=== PATIENT | male | born 2000 | race African-American/Black ===

== ENCOUNTER 2021-04-16 11:24 | Emergency (ER) | payer MEDICAID ==
[~2021-04-16] VITALS: Ht 180.3 cm; Wt 77.0 kg
[2021-04-16 11:28] VITALS: BP 129/73
[2021-04-16] MEDS ORDERED: LORAZEPAM 1MG TABLET PO ONE (11:30)
[2021-04-16] MEDS ORDERED: LORA-250 MT (14:22)
== END 2021-04-16 14:30 | disposition home or self-care (01) ==
LOC: ER 11:24
DX: F41.0 Panic disorder [episodic paroxysmal anxiety] (principal); J45.909 Unspecified asthma, uncomplicated
CPT/HCPCS: 93005; 99283

== ENCOUNTER 2021-04-25 19:14 | Emergency (ER) | payer MEDICAID ==
[~2021-04-25] VITALS: Ht 180.3 cm; Wt 73.0 kg
[~2021-04-25 19:14] MED LIST: LORA-250 MT
[2021-04-25 19:22] VITALS: BP 129/39
== END 2021-04-25 21:30 | disposition left against medical advice (07) ==
LOC: ER 19:14
DX: Z53.21 Procedure and treatment not carried out due to patient leaving prior to being seen by health care provider (principal)
CPT/HCPCS: 93005

== ENCOUNTER 2023-10-30 19:40 | Emergency (ER) | payer MEDICAID ==
[2023-10-30 20:12] VITALS: PULSE 62; RESP 16; O2SAT 99
== END 2023-10-30 21:00 | disposition left against medical advice (07) ==
LOC: ER 19:40
DX: R68.89 Other general symptoms and signs (principal); Z53.21 Procedure and treatment not carried out due to patient leaving prior to being seen by health care provider